=== PATIENT | female | born 1995 | race Caucasian/White ===

== ENCOUNTER → 2017-08-23 12:51 | Outpatient (CLI) | payer OTHER, SELFPAY ==
--- NOTE | 2017-08-23 13:30 | US_ITS ---
US breast RT complete ORDERING PHYSICIAN : Antoinette Aaron PATIENT AGE: 21 years GENDER: Female COMPARISON: Previous ultrasound from November 15, 2016 INDICATION: Palpable area at 12:00 right breast persist. RIGHT BREAST ULTRASOUND INCLUDING AXILLA SURVEY: --- The clinically palpable area at 12:00 reportedly persist.. No ultrasound findings to fully account for this area The previously noted small cyst here at 12:00 noted previously is now slight smaller in size measuring only 4.1 mm.. (Previously this measured up to 5.5 mm). Thus as questioned previously, the palpable area appears larger this tiny cyst which does not seem to fully account for the palpable area. However ultrasound reveals only fibrous tissue here at 12:00 with no suspicious mass or nodule otherwise seen.. (We prefer not to to perform mammography in younger developing breast as in this age patient. Younger developing breast are more sensitive to radiation effects & Mammography often quite limited younger breast of increased density in of limited utility;. Also given the probability of malignancy is exceedingly low in this age patient, I believe follow-up ultrasound from our standpoint would be adequate. However would note that that any clinically progressing, suspicious area should addressed on clinical grounds regardless of imaging studies results.) At 10:00 we encounter a small 5 mm mm cyst. It too is slightly smaller previously measuring 6.8 mm .. Scattered small benign lymph nodes at left axilla not of concern. ======= LEFT BREAST ULTRASOUND including axillary survey:---- Ultrasound entire breast with including left axillary survey 2:00. A small 6.5 mm x 3 mm hypoechoic area. Favor Small debris filled cyst given slight through transmission vs possible small developing benign fibroadenoma.. Well-defined margins benign appearance. Follow-up adequate 3:00. Tiny bilobed debris-filled cyst measuring up to 5 mm x 2.5 mm.. Not of concern. Axillary survey with no significant findings. A few benign nodes ------IMPRESSION: 1. Small benign areas in both breast reflecting cyst & favor debris-filled cyst. 2. Right Breast. ..Small benign-appearing cyst at 12:00 measuring 4.1 mm on today's study has shown slight decrease in size since previous October 2016 ultrasound study. Doubt that this tiny cyst accounts for the palpable fullness in this area. But no areas of concern seen otherwise in the palpable area with today's ultrasound. Ultrasound Follow-up in 6-9 months may be helpful and suggested confirm established stability 3. Left breast. No areas of concern. Small most likely debris filled cyst at 3:00 and 2 o'clock position. Favor debris-filled cyst at 2:00 although may benefit from follow-up to exclude early fibroadenoma Ultrasound Follow-up in 6-9 months suggested to confirm established stability. BI-RADS Category: 3 Benign Finding Short Term Follow-up RECOMMENDED FOLLOW-UP: 6M - 9 MONTH FOLLOW-UP ultrasound both breast may be helpful & suggested to confirm stability of these most likely benign observations bilaterally (A letter has been sent to the patient regarding results of the study.)
--- NOTE | 2017-08-23 13:30 | US_ITS ---
US breast LT complete Ordering Physician: Antoinette Walker Patient Age: 21 years: Female HISTORY: == Palpable area right breast: LEFT BREAST ULTRASOUND including axillary survey:---- Ultrasound entire breast with including left axillary survey 2:00. A small 6.5 mm x 3 mm hypoechoic area. Favor Small debris filled cyst given slight through transmission vs possible small developing benign fibroadenoma.. Well-defined margins benign appearance. Follow-up adequate 3:00. Tiny bilobed debris-filled cyst measuring up to 5 mm x 2.5 mm.. Not of concern. Axillary survey with no significant findings. A few benign nodes *Report dictated on a voice-recognition system is significant commercial fisher error identified please feel free to contact for correction... ------IMPRESSION: 1. Small benign areas in both breast reflecting cyst favor debris-filled cyst. 2. Right Breast. ..Small benign-appearing cyst at 12:00 measuring 4.1 mm on today's study has shown slight decrease in size since previous October 2016 ultrasound study. Doubt that this tiny cyst accounts for the palpable fullness in this area. But no areas of concern seen otherwise in the palpable area with today's ultrasound. Ultrasound Follow-up in 6-9 months may be helpful and suggested confirm established stability 3. Left breast. No areas of concern. Small most likely debris filled cyst at 3:00 and 2 o'clock position. Favor debris-filled cyst at 2:00 although may benefit from follow-up to exclude early fibroadenoma Ultrasound Follow-up in 6-9 months suggested to confirm established stability. BI-RADS Category: 3 Benign Finding Short Term Follow-up RECOMMENDED FOLLOW-UP: 6M - 9 MONTH FOLLOW-UP ultrasound both breast may be helpful suggested to confirm stability of these most likely benign observations bilaterally (A letter has been sent to the patient regarding results of the study.) Ultrasound Follow-up in 6-9 months suggested to confirm established stability
== END ==
PROVIDERS: Family Provider Physician Assistant; PCP Nurse Practitioner Family; Visit Provider Nurse Practitioner Family
DX: N63.10 Unspecified lump in the right breast, unspecified quadrant (principal); R93.8 Abnormal findings on diagnostic imaging of other specified body structures
CPT/HCPCS: 76641

== ENCOUNTER → 2017-09-09 12:27 | Outpatient (CLI) | payer OTHER, SELFPAY ==
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
== END ==
PROVIDERS: PCP Physician Assistant; Visit Provider Physician Assistant
DX: M25.561 Pain in right knee (principal)
CPT/HCPCS: 73564

== ENCOUNTER → 2018-04-29 10:04 | Outpatient (CLI) | payer OTHER, SELFPAY ==
[2018-04-29 10:44] LABS: Basophils % 0.6 % (0.1-2.0); Eosinophils # 0.3 K/mm3 (0.0-0.4); Eosinophils % 4.1 % (0.1-12.0); Hematocrit 43.8 % (37.0-47.0); Hemoglobin 14.1 g/dL (12.2-16.2); Lymphocytes # 2.5 K/mm3 (0.7-4.5); Lymphocytes % 39.6 K/mm3 (10-50); Mean Corpuscular HGB Conc 32.2 g/dL (31.8-35.4); Mean Corpuscular Hemoglobin 28.4 pg (27.0-31.2); Mean Corpuscular Volume 88.2 fl (81-99); Mean Platelet Volume 7.5 fl (7.4-10.4); Monocytes # 0.2 K/mm3 (0.1-1.0); Monocytes % 3.9 % (1.7-9.3); Neutrophils # 3.2 K/mm3 (1.8-7.8); Neutrophils % 51.8 % (37.0-80.0); Platelet Count 295 K/mm3 (142-424); Red Blood Count 4.97 M/mm3 (4.20-5.40); Red Cell Distribution Width 13.8 % (11.5-17.5); White Blood Count 6.2 K/mm3 (4.8-10.8)
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
[2018-04-29 11:08] LABS: Hemoglobin A1C 5.1 % (0.0-7.0)
[2018-04-29 11:10] LABS: Alanine Aminotransferase 25 U/L (12-78); Albumin Level 3.2 gm/dL (3.4-5.0); Albumin/Globulin Ratio 0.8 (1.1-1.8); Alkaline Phosphatase 99 U/L (46-116); Anion Gap 14.4 mEq/L (5-15); Aspartate Amino Transferase 13 U/L (15-37); Bilirubin,Total 0.3 mg/dL (0.2-1.0); Blood Urea Nitrogen 7 mg/dL (7-18); Calcium 9.1 mg/dL (8.5-10.1); Carbon Dioxide 24 mmol/L (21.0-32.0); Chloride 106 mmol/L (98-107); Estimated Glomerular Filt Rate 103 ml/min (>60); GFR (African American) 124 ML/MIN (>60); Globulin 3.8 gm/dl (1.3-3.2); Glucose 91 mg/dL (74-106); Potassium 4.4 mmoL/L (3.5-5.1); Sodium 140 mmol/L (136-145); Thyroid Stimulating Hormone 1.57 uIU/ml (0.358-3.740)
[2018-04-29 11:12] LABS: Glucose,Fasting 91 mg/dL (60-105)
[2018-04-29 12:10] LABS: Glucose 1 Hour 86 mg/dL (74-106)
[2018-05-01 03:33] LABS: Vitamin B12 429 pg/mL (232-1245)
[2018-05-02 06:11] LABS: Insulin Level Total 17.6 uIU/mL (2.6-24.9); Vitamin D 25 Hydroxy 38.2 ng/mL (30.0-100.0)
== END ==
PROVIDERS: PCP Nurse Practitioner Family; Visit Provider Nurse Practitioner Family
DX: R11.0 Nausea (principal); N95.1 Menopausal and female climacteric states; E16.2 Hypoglycemia, unspecified; E55.9 Vitamin D deficiency, unspecified; I25.2 Old myocardial infarction
CPT/HCPCS: 36415; 71046; 80053; 82607; 82652; 82951; 83036; 83525; 84443; 85025

== ENCOUNTER → 2018-05-09 14:39 | Outpatient (CLI) | payer OTHER, SELFPAY ==
[2018-05-09 14:42] LABS: Adenovirus,PCR Not Detected (NotDetected); Bordetella Pertussis Not Detected (NotDetected); Chlamydophila Pneumoniae, PCR Not Detected (NotDetected); Coronavirus 229E Not Detected (NotDetected); Coronavirus NL63 Not Detected (NotDetected); Coronavirus OC43 Not Detected (NotDetected); Coronovirus HKU1,PCR Not Detected (NotDetected); Human Metapneumovirus Not Detected (NotDetected); Influenza A, PCR Not Detected (NotDetected); Influenza AH1, 2009 Not Detected (NotDetected); Influenza AH1, PCR Not Detected (NotDetected); Influenza AH3,PCR Not Detected (NotDetected); Influenza B, PCR Not Detected (NotDetected); Mycoplasma Pneumoniae, PCR Not Detected (NotDected); Parainfluenza 1, PCR Not Detected (NotDetected); Parainfluenza 2, PCR Not Detected (NotDetected); Parainfluenza 3, PCR Not Detected (NotDetected); Parainfluenza 4, PCR Not Detected (NotDetected); Respiratory Syncytial Virus Not Detected (NotDetected); Rhinovirus/Enterovirus Not Detected (NotDetected)
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
[2018-05-09 15:04] LABS: Monoscreen (Rapid) Negative (Negative)
== END ==
PROVIDERS: PCP Nurse Practitioner Family; Visit Provider Nurse Practitioner Family
DX: R50.9 Fever, unspecified (principal); J02.9 Acute pharyngitis, unspecified; M43.6 Torticollis
CPT/HCPCS: 36415; 72050; 86318; 87486; 87581; 87633; 87798

== ENCOUNTER → 2018-07-20 12:46 | Outpatient (CLI) | payer OTHER, SELFPAY ==
--- NOTE | 2018-07-20 13:06 | US_ITS ---
US breast LT complete INDICATION: 1 year follow-up, palpable abnormality at 12 and 1:00 with breast tenderness ORDERING PHYSICIAN: Antoinette Walker PATIENT AGE: 22 years COMPARISON: 08/23/2017 TECHNIQUE: Complete breast ultrasound performed with axilla FINDINGS: 4 mm cyst at 1:00, 3 mm cyst at 2:00, oval hypoechoic area deep in the left breast at 2:00 at 4 mm slightly smaller compared to the previous study previously measuring 5 x 3 mm. 3 mm cyst at 3:00 5 mm complex cyst at 3:00 unchanged. No suspicious nodules evident. Small nodes are present in the axilla IMPRESSION: Multiple left breast cysts unchanged BI-RADS Category: 2 Benign Finding(s) Recommend follow-up as clinically warranted. NEGATIVE ULTRASOUND DOES NOT EXCLUDE THE POSSIBILITY OF MALIGNANCY. ANY PALPABLE NODULE SHOULD BE MANAGED ON A CLINICAL BASIS (A letter has been sent to the patient regarding results of the study.)
--- NOTE | 2018-07-20 13:06 | US_ITS ---
US breast RT complete INDICATION: Palpable abnormality at 6 and 12:00 with breast tenderness ORDERING PHYSICIAN: Antoinette Walker PATIENT AGE: 22 years COMPARISON: 08/23/2017 TECHNIQUE: Right breast ultrasound complete with excellent FINDINGS: 4 x 2 mm complex cyst at 1:00. Unchanged, 3 mm cyst outer aspect of the right breast at 10:00, 4 mm cyst outer aspect right breast 11:00, 4 mm cyst in the retroareolar region. No suspicious nodules evident. IMPRESSION: Small right breast cysts. No nodules demonstrated at the palpable areas of concern. BI-RADS Category: 2 Benign Finding(s) Recommend follow-up as clinically warranted. A NEGATIVE ULTRASOUND DOES NOT EXCLUDE THE POSSIBILITY OF MALIGNANCY. ANY PALPABLE MASS SHOULD BE MANAGED ON A CLINICAL BASIS (A letter has been sent to the patient regarding results of the study.)
== END ==
PROVIDERS: PCP Nurse Practitioner Family; Visit Provider Nurse Practitioner Family
DX: R93.89 Abnormal findings on diagnostic imaging of other specified body structures (principal)
CPT/HCPCS: 76641

== ENCOUNTER → 2018-09-06 19:24 | Outpatient (CLI) | payer OTHER, SELFPAY ==
[2018-09-06 19:48] LABS: Adenovirus,PCR Not Detected (NotDetected); Bordetella Pertussis Not Detected (NotDetected); Chlamydophila Pneumoniae, PCR Not Detected (NotDetected); Coronavirus 229E Not Detected (NotDetected); Coronavirus NL63 Not Detected (NotDetected); Coronavirus OC43 Not Detected (NotDetected); Coronovirus HKU1,PCR Not Detected (NotDetected); Human Metapneumovirus Not Detected (NotDetected); Influenza A, PCR Not Detected (NotDetected); Influenza AH1, 2009 Not Detected (NotDetected); Influenza AH1, PCR Not Detected (NotDetected); Influenza AH3,PCR Not Detected (NotDetected); Influenza B, PCR Not Detected (NotDetected); Mycoplasma Pneumoniae, PCR Not Detected (NotDetected); Parainfluenza 1, PCR Not Detected (NotDetected); Parainfluenza 2, PCR Not Detected (NotDetected); Parainfluenza 3, PCR Not Detected (NotDetected); Parainfluenza 4, PCR Not Detected (NotDetected); Respiratory Syncytial Virus Not Detected (NotDetected); Rhinovirus/Enterovirus Not Detected (NotDetected)
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
[2018-09-06 20:12] LABS: HCG Qualitative, Serum Negative (Negative)
[2018-09-06 20:22] LABS: Alanine Aminotransferase 22 U/L (12-78); Albumin Level 3.3 gm/dL (3.4-5.0); Albumin/Globulin Ratio 0.9 (1.1-1.8); Alkaline Phosphatase 88 U/L (46-116); Anion Gap 15.8 mEq/L (5-15); Aspartate Amino Transferase 11 U/L (15-37); Bilirubin,Total 0.2 mg/dL (0.2-1.0); Blood Urea Nitrogen 9 mg/dL (7-18); Calcium 9.2 mg/dL (8.5-10.1); Carbon Dioxide 25 mmol/L (21.0-32.0); Chloride 104 mmol/L (98-107); Creatinine,Serum 0.79 mg/dL (0.55-1.02); Estimated Glomerular Filt Rate 89 ml/min (>60); GFR (African American) 108 ML/MIN (>60); Globulin 3.7 gm/dl (1.3-3.2); Glucose 86 mg/dL (74-106); HCG,Quantitative 1 mIU/mL; Potassium 3.8 mmoL/L (3.5-5.1); Sodium 141 mmol/L (136-145)
[2018-09-06 20:42] LABS: Basophils # 0.1 K/mm3 (0-0.2); Basophils % 0.7 % (0.1-2.0); Eosinophils # 0.3 K/mm3 (0.0-0.4); Eosinophils % 4.4 % (0.1-12.0); Hematocrit 40.9 % (37.0-47.0); Hemoglobin 13.6 g/dL (12.2-16.2); Lymphocytes # 2.8 K/mm3 (0.7-4.5); Lymphocytes % 37.2 % (10-50); Mean Corpuscular HGB Conc 33.2 g/dL (31.8-35.4); Mean Corpuscular Hemoglobin 28.7 pg (27.0-31.2); Mean Corpuscular Volume 86.4 fl (81-99); Mean Platelet Volume 6.6 fl (7.4-10.4); Monocytes # 0.5 K/mm3 (0.1-1.0); Monocytes % 6.4 % (1.7-9.3); Neutrophils # 3.8 K/mm3 (1.8-7.8); Neutrophils % 51.3 % (37.0-80.0); Platelet Count 272 K/mm3 (142-424); Red Blood Count 4.73 M/mm3 (4.20-5.40); Red Cell Distribution Width 14.3 % (11.5-17.5); White Blood Count 7.4 K/mm3 (4.8-10.8)
[2018-09-08 17:39] LABS: EBV Ab VCA, IgM <36.0 U/mL (0.0-35.9); EBV Nuclear Antigen Ab, IgG >600.0 U/mL (0.0-17.9); Epstein-Barr Virus Early Ag Ab <9.0 U/mL (0.0-8.9)
== END ==
PROVIDERS: PCP Nurse Practitioner Family; Visit Provider Nurse Practitioner Family
DX: R10.9 Unspecified abdominal pain (principal); J02.9 Acute pharyngitis, unspecified; R53.81 Other malaise; M79.10 Myalgia, unspecified site
CPT/HCPCS: 36415; 74019; 80053; 84702; 84703; 85025; 86663; 86664; 86665; 87486; 87581; 87633; 87798

== ENCOUNTER → 2018-12-07 09:39 | Outpatient (CLI) | payer OTHER, SELFPAY ==
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
== END ==
PROVIDERS: PCP Nurse Practitioner Family; Visit Provider Nurse Practitioner Family
DX: R10.30 Lower abdominal pain, unspecified (principal)
CPT/HCPCS: 74176

== ENCOUNTER 2020-06-07 21:02 | Emergency (ER) | payer OTHER, SELFPAY ==
[2020-06-07 21:12] VITALS: BMI 37.8
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
[2020-06-07 21:20] LABS: Microscopic, Urine URINE MICROSCOPIC (MICROSCOPIC)
[2020-06-07 21:21] VITALS: BP 175/96; PULSE 92; RESP 18; TEMP 36.8; O2SAT 98; BMI 37.8
[2020-06-07 21:27] LABS: Appearance,Urine SL CLOUDY (Clear); Bilirubin,Urine Negative (Negative); Blood, Urine Negative (Negative); Color,Urine YELLOW (Yellow); Glucose,Urine (UA) Negative (Negative); Ketones,Urine TRACE (Negative); Leukocyte Esterase,Urine Negative (Negative); Nitrate,Urine Negative (Negative); Protein,Urine Negative (Negative); Specific Gravity, Urine >= 1.030 (1.005-1.030)
[2020-06-07 21:32] LABS: Urine Pregnancy, HCG Qual. Negative (Negative)
[2020-06-07 21:33] LABS: Mucus,Urine 2+ /lpf
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
[2020-06-07 21:38] LABS: Basophils # 0.1 K/mm3 (0-0.2); Basophils % 1.2 % (0.1-2.0); Eosinophils # 0.3 K/mm3 (0.0-0.4); Eosinophils % 2.8 % (0.1-12.0); Hematocrit 45.9 % (37.0-47.0); Hemoglobin 15.2 g/dL (12.2-16.2); Lymphocytes # 4.5 K/mm3 (0.7-4.5); Lymphocytes % 45.6 % (10-50); Mean Corpuscular HGB Conc 33.1 g/dL (31.8-35.4); Mean Corpuscular Hemoglobin 28.7 pg (27.0-31.2); Mean Corpuscular Volume 86.5 fl (81-99); Mean Platelet Volume 7.6 fl (7.4-10.4); Monocytes # 0.7 K/mm3 (0.1-1.0); Monocytes % 6.7 % (1.7-9.3); Neutrophils # 4.3 K/mm3 (1.8-7.8); Neutrophils % 43.7 % (37.0-80.0); Platelet Count 359 K/mm3 (142-424); Red Blood Count 5.31 M/mm3 (4.20-5.40); Red Cell Distribution Width 14.7 % (11.5-17.5); White Blood Count 9.8 K/mm3 (4.8-10.8)
[2020-06-07 21:43] LABS: Alanine Aminotransferase 21 U/L (12-78); Albumin Level 4.6 g/dl (3.5-5.0); Albumin/Globulin Ratio 1.5 (1.1-1.8); Alkaline Phosphatase 118 U/L (38-126); Anion Gap 12.7 mEq/L (5-15); Aspartate Amino Transferase 36 U/L (14-36); Bilirubin,Total 0.4 mg/dl (0.2-1.3); Blood Urea Nitrogen 9 mg/dl (7-17); Calcium 9.5 mg/dl (8.4-10.2); Carbon Dioxide 25 mmol/L (22.0-30.0); Chloride 106 mmol/L (98-107); Creatinine Clearance Estimated 174 mL/min (50-200); Estimated Glomerular Filt Rate 101 ml/min (>60); GFR (African American) 122 ML/MIN (>60); Globulin 3.1 g/dL (1.3-3.2); Glucose 97 mg/dl (74-100); Potassium 3.7 mmoL/L (3.5-5.1); Sodium 140 mmol/L (136-145); Total Protein,Serum 7.7 g/dl (6.3-8.2)
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
[2020-06-07 22:10] VITALS: BP 124/86; PULSE 94; RESP 18; O2SAT 96
--- NOTE | 2020-06-07 23:05 | PC.NURSE ---
RECEIVED REPORTS FROM [facility]. [facility]OPE[facility] READING AT THIS TIME.
[2020-06-07 23:29] VITALS: BP 132/83; PULSE 86; RESP 18; O2SAT 95
[2020-06-07 23:35] VITALS: BP 121/58; PULSE 78; RESP 18; TEMP 36.8; O2SAT 98
== END 2020-06-07 23:38 | disposition home or self-care (01) ==
PROVIDERS: Emergency Provider Emergency Medicine; PCP Nurse Practitioner Family
DX: S16.1XXA Strain of muscle, fascia and tendon at neck level, initial encounter (principal); S29.012A Strain of muscle and tendon of back wall of thorax, initial encounter; S39.012A Strain of muscle, fascia and tendon of lower back, initial encounter; V43.62XA Car passenger injured in collision with other type car in traffic accident, initial encounter; Y92.414 Local residential or business street as the place of occurrence of the external cause
CPT/HCPCS: 70450; 71045; 72125; 72128; 72131; 72170; 73030; 80053; 81001; 81025; 85025; 99282

== ENCOUNTER 2020-07-15 08:00 | Outpatient (RCR) | payer OTHER, SELFPAY | END 2020-07-15 10:00 | disposition home or self-care (01) | LOC: PT.CARL 08:00 | PROVIDERS: PCP Nurse Practitioner Family; Visit Provider Nurse Practitioner Family | DX: M54.2 Cervicalgia (principal) | CPT/HCPCS: 97010; 97012; 97014; 97035; 97110; 97140; 97163; G0283 ==

== ENCOUNTER → 2020-10-21 14:19 | Outpatient (CLI) | payer OTHER, SELFPAY ==
--- NOTE | 2020-10-21 14:28 | MM_ITS ---
PROCEDURE: MM DIG MAMM BI DX W/CAD Digital Breast Tomosynthesis Included CLINICAL INDICATION: MASTODYNIA COMPARISON: US US BREAST RT COMPLETE from 10/21/2020 US US BREAST LT COMPLETE from 10/21/2020 TECHNIQUE: Standard CC and MLO images and 3D Tomosynthesis was obtained. R2 CAD reviewed. Spot-compression views are performed on the right. FINDINGS: There is average fibroglandular tissue. There is a spiculated density with some architectural distortion involving the upper inner aspect of the right breast. This appears to have a central lucency and may be due to a radial scar. Neoplasm is also considered. The central aspect of the lesion measures approximately 1.8 cm on the CC view with radiating bands emanating out from the central aspect of the lesion. Stereotactic directed biopsy is suggested for further evaluation. This area was not visible on the subsequent ultrasound. In the inferior aspect of the left breast there is a 4 mm benign-appearing nodule which is well-circumscribed. This is at the 8 o'clock region Right breast ultrasound: 4 mm complicated cyst at 12 o'clock. The spiculated lesion is not readily identified on ultrasound. Left breast ultrasound: There is a 5 mm hypoechoic nodule at 12 o'clock near the nipple with enhanced through transmission of sound. There is some low level echoes within this area. This may be due to a complicated cyst. IMPRESSION: Spiculated lesion of the right breast possibly due to a radial scar versus neoplasm. Recommend stereotactic directed biopsy. BI-RAD Category: 4 Suspicious Abnormality - Biopsy Considered FOLLOW-UP: BIO Biopsy Recommended (A letter has been sent to the patient regarding results of the study.) Dictated by: Mohan Posey MD 10/24/2020 13:17 Mohan Posey MD in [facility] 10/24/2020 13:17
== END ==
PROVIDERS: PCP Nurse Practitioner Family; Visit Provider Nurse Practitioner Family
DX: N64.4 Mastodynia (principal)
CPT/HCPCS: 76641; 77062; 77066; G0279

== ENCOUNTER → 2020-11-12 10:02 | Outpatient (CLI) | payer OTHER, SELFPAY ==
--- NOTE | 2020-11-12 | MM_ITS ---
PROCEDURE: MM STEREOTACTIC LOC RT Digital Breast Tomosynthesis Included CLINICAL INDICATION: NEOPLASM OF UNCERTAIN BEHAVOR OF RT BREAST Abnormal mammogram COMPARISON: MG MM DIG MAMM BI DX W/CAD from 10/21/2020 MG MM CLIP PLACEMENT RT from 11/12/2020 TECHNIQUE: Following obtaining informed consent and time-out procedure the patient was placed in the stereotactic unit and the area of asymmetric density at 2 o'clock in the right breast was localized using standard technique. Under aseptic conditions and local anesthesia with 1 percent buffered lidocaine mammotome needle was inserted and multiple mammotome biopsies were obtained. A clip was placed bud dislodged during removal of the needle. The patient tolerated the procedure well without evidence of immediate complications. FINDINGS: Pathology: Focal radial scar. Focal pseudo angiomatous stromal hyperplasia/Pash and fibrocystic changes with microcalcification. Negative for atypia or malignancy. Post biopsy mammogram: Post biopsy changes are present at the 2 o'clock region of the right breast in the expected area of deformity where the mammographic abnormality was noted. Although the clip was deployed, it did not adhere and was removed during removal of the needle. IMPRESSION: Uneventful stereotactic directed biopsy of the right breast showing radial scar and PASH. No evidence of atypia or malignancy. Would consider surgical consult to give patient options on how to follow this pathological finding. A six-month mammographic follow-up could be performed to confirm short term stability. Dictated by: Mohan Posey MD 11/22/2020 16:11 Mohan Posey MD in [place] 11/22/2020 16:11
== END ==
PROVIDERS: PCP Nurse Practitioner Family; Visit Provider Nurse Practitioner Family
DX: D48.61 Neoplasm of uncertain behavior of right breast (principal)
CPT/HCPCS: 19081; 77065

== ENCOUNTER → 2021-08-26 12:47 | Outpatient (CLI) | payer OTHER, SELFPAY ==
--- NOTE | 2021-08-26 12:58 | MM_ITS ---
PROCEDURE INFORMATION: Exam: MG Right Diagnostic Breast Tomosynthesis Exam date and time: 08/26/2021 12:58 PM Age: 25 years old Clinical indication: Patient HX: 6 month follow up from stereotactic biopsy showing radial scar TECHNIQUE: Imaging protocol: Right Diagnostic tomosynthesis and 2D mammography including computer-aided detection (CAD) when performed. Unilateral or bilateral exam. COMPARISON: 1. MG MM CLIP PLACEMENT RT 11/12/2020 11:42 AM 2. MG MM DIG MAMM BI DX W/CAD 10/21/2020 2:39 PM FINDINGS: MAMMOGRAPHY: The breast tissue is composed of scattered areas of fibroglandular density. There is no stellate mass or suspicious microcalcifications in either breast to suggest malignancy. Persistent architectural distortion in the posterior third of the right upper inner quadrant at the site of prior stereotactic biopsy showing radial scar. No clip is noted. No skin thickening or axillary adenopathy. IMPRESSION: Persistent architectural distortion in the right upper inner quadrant. Surgical consultation is recommended given the presence of a radial scar. ASSESSMENT: BI-RADS Category 4: Suspicious
== END ==
PROVIDERS: PCP Nurse Practitioner Family; Visit Provider Nurse Practitioner Family
DX: R92.2 Inconclusive mammogram (principal)
CPT/HCPCS: 77061; 77065; G0279

== ENCOUNTER → 2021-09-12 08:35 | Outpatient (CLI) | payer OTHER, SELFPAY | PROVIDERS: PCP Nurse Practitioner Family; Visit Provider Surgery | DX: N63.0 Unspecified lump in unspecified breast (principal) ==

== ENCOUNTER → 2021-09-14 09:08 | Outpatient (CLI) | payer OTHER, SELFPAY ==
[2021-09-14 09:35] LABS: Urine Pregnancy, HCG Qual. Negative (Negative)
[2021-09-14 10:09] LABS: Basophils % 0.5 % (0.1-2.0); Eosinophils # 0.2 K/mm3 (0.0-0.4); Hematocrit 42.6 % (37.0-47.0); Hemoglobin 13.5 g/dL (12.2-16.2); Lymphocytes # 2.3 K/mm3 (0.7-4.5); Lymphocytes % 30.9 % (10-50); Mean Corpuscular HGB Conc 31.6 g/dL (31.8-35.4); Mean Corpuscular Hemoglobin 28.9 pg (27.0-31.2); Mean Corpuscular Volume 91.5 fl (81-99); Monocytes # 0.5 K/mm3 (0.1-1.0); Monocytes % 6.6 % (1.7-9.3); Neutrophils # 4.3 K/mm3 (1.8-7.8); Platelet Count 345 K/mm3 (142-424); Red Blood Count 4.66 M/mm3 (4.20-5.40); Red Cell Distribution Width 14.5 % (11.5-17.5); White Blood Count 7.3 K/mm3 (4.8-10.8)
[2021-09-14 10:15] LABS: Chloride 105 mmol/L (98-107); Potassium 4.4 mmoL/L (3.5-5.1); Sodium 132 mmol/L (136-145)
[2021-09-14 10:18] LABS: Blood Urea Nitrogen 10 mg/dl (7-17); Estimated Glomerular Filt Rate 120 ml/min (>60); GFR (African American) 145 ML/MIN (>60)
[2021-09-14 10:19] LABS: Anion Gap 7.4 mEq/L (5-15); Calcium 8.6 mg/dl (8.4-10.2); Carbon Dioxide 24 mmol/L (22.0-30.0); Glucose 85 mg/dl (74-100)
== END ==
PROVIDERS: PCP Nurse Practitioner Family; Visit Provider Surgery
DX: Z01.812 Encounter for preprocedural laboratory examination (principal); Z11.52 Encounter for screening for COVID-19; N63.12 Unspecified lump in the right breast, upper inner quadrant
CPT/HCPCS: 36415; 80048; 81025; 85025; C9803; U0003; U0005

== ENCOUNTER 2021-09-15 11:30 | Day surgery (SDC) | payer OTHER, SELFPAY ==
[2021-09-11 13:21] VITALS: BMI 39.3
[2021-09-15] VITALS (12 sets, daily range): BP systolic 124–147; BP diastolic 74–99; PULSE 81–111; RESP 16–22; TEMP 36.1–43; O2SAT 93–98
--- NOTE | 2021-09-15 12:05 | MM_ITS ---
FINAL REPORT CLINICAL HISTORY: .RT BREAST SPECIMEN FINDINGS: Right breast needle localization procedure. History: Architectural distortion. Abnormal mammogram. Standard written informed consent was obtained. Technique: The right breast was prepped in routine sterile fashion and locally anesthetized with 1% lidocaine. A Kopan's needle was directed from a superior to inferior approach using mammographic grid localization. Imaging was then performed from a lateral projection to optimize needle depth and hook wire deployment. The needle was mildly retracted with hookwire deployed less than 1 cm beyond the area of architectural distortion. The bulbous portion of the localization wire was noted to be centered within the area of architectural distortion. 3D imaging after hookwire localization was performed which showed satisfactory positioning of the localization wire within the region of distortion. A specimen radiograph shows the hookwire to be contained within the specimen but no clear mass or obvious architectural distortion. IMPRESSION: Technically successful hookwire localization of area of architectural distortion within the right breast Authenticated by Fay Maddox MD on 09/17/2021 02:49:41 PM [facility]
--- NOTE | 2021-09-15 14:30 | P.PN_ITS ---
[facility] Anesthesia Checklist - Patient Identification Patient Identification: Arm Band - Structural Data Admitted From: Home Planned Operative Procedure/s: Right Needle Loc Breast Biopsy Consent for Planned Operative Procedure(s) Verified: Yes Verified Documents: Surgical Consent, History and Physical - NPO Status Verified Time NPO: 00:00 - Additional verifications Anesthesia Reactions: No Hx Blood Transfusions: No Blood Transfusion Reaction: No - Airway Assessment C-Spine Mobility Assessed: Yes (mp2) TMJ Mobility Assessed: Yes Dentition: Good Dentition - Neurological Assessment Level of Consciousness: Awake, Alert - Anesthesia Plan Anesthesia Risk discussed: Yes Anesthesia Plan: Verified ASA Class: III Anesthesia Type: General [facility] History I have reviewed the patient's past medical history: Yes Medical History: Denies:: Cancer, Diabetes Mellitus Type 1, Diabetes Mellitus Type 2, Internal Pacemaker, MRSA, Seizures *Have you ever received a pneumonia vaccine?: No *Have you received a flu vaccine this season?: No Other Medical History: Denies: Blood Transfusion Reaction Anesthesia experience/problems:: nac Laterality Cases: Bilateral: Tonsillectomy Other Surgeries: No: Pacemaker Amputation: No Fractures: No - *Social History Last grade of school completed: High school graduate Smoking Status: Current every day smoker Tobacco Type: cigarettes # Packs/Day (cigarettes): 1 Alcohol Intake: current Alcohol Intake Frequency:: a few times a month Substance Use Type: denies use *Occupational Status:: employed Housing: house Household Members: spouse *Travel in the last 8 weeks: None Family Hx:: No significant family history
--- NOTE | 2021-09-15 15:13 | MM_ITS ---
FINAL REPORT CLINICAL HISTORY: rt breast surgery specimen FINDINGS: Surgical specimen History: Excisional biopsy after hookwire localization procedure Findings: Localization hookwire is noted within the tissue specimen. There is no clear mass within the lesion. There is questionable area of distortion along the periphery of the specimen along the proximal portion of the thick portion of the localization wire. However it is not conclusive whether the area of distortion is contained within the specimen. Follow-up mammography is recommended within 3-6 months if histopathologies benign. IMPRESSION: Specimen radiograph as described above Authenticated by Fay Maddox MD on 09/17/2021 05:19:42 PM [facility]
--- NOTE | 2021-09-15 15:21 | SUR.OPER ---
1520- family updated of patients current status via dayne robertson in preop
--- NOTE | 2021-09-15 16:00 | P.OP_ITS ---
Date of procedure: 09/15/21 Pre-op Diagnosis:: Right breast lesion (radial scar/pseudoangiomatous stromal hyperplasia) Post-op Diagnosis:: Same Procedure performed:: Needle-localized excisional biopsy of right breast lesion Surgeon:: Veto Sandoval MD Business Administration Instructor(s):: [employer] MANAGEMENT INFORMATION SYSTEMS DIRECTOR:: Tacho May Anesthesia: LMA Estimated blood loss (mL): 25 Operative findings:: Tissue surrounding entire area of localization needle excised Palpable firm nodularity along medial margin excised Localization needle displaced due to angulation/tension Radiographic confirmation of complete excision unable to be obtained secondary to displaced localization needle Extended inferior and deep margins obtained secondary to inability to obtain radiographic confirmation Operative note:: After informed consent was obtained the patient was taken to the radiology suite where a localization needle was placed. Please see separate report for detail. She was then transferred to the operating room and placed in the supine position. General anesthesia with laryngeal mask airway was achieved. Her right breast was prepped and draped in a sterile fashion. After infiltration local anesthetic an incision was made at the exit site of the localization needle. The deep subcutaneous tissue was dissected with combination of sharp dissection and electrocautery. A firm area of nodularity along the lateral margin was carefully elevated. The tissue surrounding the entire localization needle, as well as, the area of firm nodularity were carefully elevated as excision was completed circumferentially. A combination of sharp dissection with curved Skaggs scissors and electrocautery was utilized to resect the specimen . Secondary to retraction/angulation the localization needle was partially displaced. Confirmation of complete excision radiographically was unable to be obtained secondary to this partial displacement. An extended inferior and deep margin were obtained for pathologic evaluation. As stated above, the entire region surrounding the localization needle site was excised with at least a 1 cm margin. No additional areas of palpable abnormality were noted. Electrocautery was utilized to achieve hemostasis. A small area of continuous sanguinous ooze was controlled with a single Vicryl suture ligation in a [id number] fashion. This was in the central deep portion of the wound. Metallic clips were placed along the wound base and margin. The entire cavity was carefully irrigated. No additional bleeding was noted. The deep subcutaneous tissue was reapproximated with 2-0 Vicryl and skin was closed with 4-0 Monocryl in a running subcuticular fashion. Condition: stable Disposition: PACU Specimens:: Right breast lesion Extended inferior margin Extended deep margin Complications:: No immediate
--- NOTE | 2021-09-15 16:01 | HMH.ANESI ---
[facility] Anesthesia Record Part I Intake, IV Amount: 1,000 Estimated blood loss (mL): 10 Urine output (mL): 0 Blood Pressure: 124/74 SaO2: 93 Pulse Rate: 110 Respiratory Rate: 16 Temperature: 97.5 F Patient is:: Drowsy, Stable Stable to PACU at:: 16:00
--- NOTE | 2021-09-15 17:14 | SUR.PHASEII ---
Reviewed DC instructions w/ patient and . Made aware to remove dressing in 48 hours and shower, leave steri strips intact. Verbalized understanding.
--- NOTE | 2021-09-16 08:09 | P.PN_ITS ---
[facility] Anesthesia Record Part II Discharge Time: 16:50 Destination: Surgical Day Care (OP Surgery) PACU nurse assessment reviewed?: Yes Patient Condition:: Good Anesthesia Complications:: None Swallowing reflex intact?: Yes Cyanosis?: No Blood Pressure: 140/77 Pulse Rate: 89 Temperature: 98 F Mental Status: Alert & Oriented Pain level:: 0 Nausea and/or vomitting:: None Intake, IV Amount: 0
[2021-09-16 08:10] VITALS: BP 140/77; PULSE 89; TEMP 36.6
== END 2021-09-15 17:13 | disposition home or self-care (01) ==
LOC: OR 11:31
PROVIDERS: PCP Nurse Practitioner Family; Visit Provider Surgery
PROC: (CPT 19100; principal; 2021-09-15 14:00)
DX: N63.12 Unspecified lump in the right breast, upper inner quadrant (principal); N94.89 Other specified conditions associated with female genital organs and menstrual cycle; Z88.1 Allergy status to other antibiotic agents
CPT/HCPCS: 19100; 19281; 76098; J2405

== ENCOUNTER 2021-11-19 09:10 | Emergency (ER) | payer OTHER, SELFPAY ==
[2021-11-19 09:11] VITALS: BP 139/80; PULSE 81; RESP 19; TEMP 37.1; O2SAT 99; BMI 37.5
[2021-11-19 09:54] LABS: Apearance,Urine Clear (Clear); Bilirubin,Urine Negative (Negative); Blood, Urine Negative (Negative); Color,Urine Dark Yellow (Yellow); Glucose,Urine (UA) Negative (Negative); Ketones,Urine Negative (Negative); PH,Urine 7.5 (5.0-8.5); Protein,Urine Negative (Negative); Specific Gravity, Urine 1.015 (1.005-1.030); UTC Leukocyte Esterase,Urine 2+ (Negative); UTC Nitrate,Urine Negative (Negative); Urobilinogen,Urine 0.2 EU/dl (0.2)
--- NOTE | 2021-11-19 10:07 | HMH.EDUTC ---
[facility] [place] Clinical Impression: Sinusitis Qualifiers: Sinusitis location: unspecified location Chronicity: unspecified Qualified Code(s): J32.9 - Chronic sinusitis, unspecified UTI (urinary tract infection) Qualifiers: Urinary tract infection type: site unspecified Hematuria presence: without hematuria Qualified Code(s): N39.0 - Urinary tract infection, site not specified Disposition: Home, Self-Care Condition on Discharge: Good Instructions: Sinusitis, DI for Sinusitis, DI for Urinary Tract Infection (UTI) Additional Instructions: *Increase fluids. Water not Soda or Tea *Start antibiotic immediately and be sure to take as ordered for the FULL length of time although you should start to see improvement over the next 48 hours *Pyridium as needed Remember this medication will turn your urine Gates. This is normal but it will stain what ever it gets on *You should not use Pyridium for more than 48 hours. If so , follow up with your primary physician to review urine culture and ensure that antibiotic is adequate for infection *Be SURE to follow up anytime for new or worsening symptoms with your family doctor. AND in 48 hours for urine culture results with your family doctor, if you do not have a doctor then you may call back to the [facility] for urine culture results and further treatment. We do recommend that you choose and establish care with a Primary Care Physician. AND follow up with them in 10-14 days to repeat UA to ensure infection is resolved and blood no longer present *Be sure to let your PCP know that we sent urine cultures from the [facility] so they can follow up to ensure that you area the on the correct antibiotic Call your doctor office and make appointment for 48 hours (2 days from today) to follow up and get the results of your urine culture and further treatment *Monitor Temp, Over the counter Motrin or Tylenol as directed/as needed Tylenol every 4 hours and Motrin every 6 hours (as long as your family doctor has told you that you can take it) for fever or pain. and straight to ER if unable to lower temp less than 101.0 after medication given *Warm salt water gargles may help to soothe the throat *Throat Lozenges *Warm fluids like tea with honey may help to soothe the throat *Sleep elevated *Humidifier/Vaporizer Follow up IMMEDIATELY for new or worsening symptoms or no Noticeable improvement over the next 48-72 hours. 911 for difficulty breathing or swallowing Prescriptions: methylPREDNISolone [Medrol 4mg tab] 4 mg PO DIRECTED #21 tab Transmission Status: Pending to [facility] Cefdinir [Omnicef 300mg Capsule] 300 mg PO BID #20 cap Transmission Status: Pending to [facility] Phenazopyridine HCl [Pyridium 200mg Tablet] 200 pow PO TID #6 tab Transmission Status: Pending to [facility] Referrals: Catrachita Ortega [Primary Care Provider] - As needed Time of Disposition: 10:18 Medical Decision Making - Jakub Inquiry Pt receiving controlled substance: No Jakub was queried for this patient: No Vital Signs: 11/19/21 09:11 Temperature 98.7 F Temperature Source Oral Pulse Rate [Left Radial] 81 Respiratory Rate 19 Blood Pressure [Right Arm] 139/80 Blood Pressure Mean [Right Arm] 99 Blood Pressure Source [Right Arm] Automatic Cuff Blood Pressure Position [Right Arm] Sitting 02 Sat by Pulse Oximetry 99 Oxygen Delivery Method Room Air - Lab Data Lab results reviewed: Yes: I reviewed the patient's lab results. Lab Results 11/19/21 09:39: Urine Color Dark yellow, Urine Appearance Clear, Urine pH 7.5, Ur Specific [place] 1.015, Urine Protein Negative, Urine Glucose (UA) Negative, Urine Ketones Negative, Urine Blood Negative, Urine Nitrate Negative, Urine Bilirubin Negative, Urine Urobilinogen 0.2, Ur Leukocyte Esterase 2+ A Orders (Tests/Meds): ORDERS Category Date Time Status Urine Culture Stat Micro 11/19/21 09:53 [place] [facility] [place] - General Stated complaint:
[2021-11-19 10:24] VITALS: BP 139/80; PULSE 81; RESP 19; TEMP 37.1; O2SAT 99
== END 2021-11-19 10:26 | disposition home or self-care (01) ==
PROVIDERS: Emergency Provider Nurse Practitioner; PCP Nurse Practitioner Family
DX: J32.9 Chronic sinusitis, unspecified (principal); N39.0 Urinary tract infection, site not specified; Z79.899 Other long term (current) drug therapy; Z72.0 Tobacco use
CPT/HCPCS: 81003; 87086; 99212; G0463

== ENCOUNTER 2022-10-21 08:23 | Emergency (ER) | payer OTHER, SELFPAY ==
[2022-10-21 08:47] VITALS: BP 155/76; PULSE 90; RESP 20; TEMP 37.1; O2SAT 99; BMI 36.6
--- NOTE | 2022-10-21 08:52 | XR_ITS ---
FINAL REPORT CLINICAL HISTORY: fall yesterday, lateral foot pain FINDINGS: LEFT FOOT Three views of the left foot demonstrate no acute fracture or dislocation. The visualized joint spaces are normally aligned. The soft tissues are unremarkable. IMPRESSION: No acute bony abnormality. Reviewed, Interpreted and Dictated by Wilson Pop MD Transcribed by Agueda Álvarez Authenticated and [facility]
--- NOTE | 2022-10-21 08:53 | PC.NURSE ---
RADIOLOGY AWARE OF XRAY.
--- NOTE | 2022-10-21 09:21 | EXP.UTC ---
Discharge Plan Disposition Patient Disposition: Home, Self-Care Condition: Good Prescriptions Prescriptions: No Action clomiphene citrate 50 mg tablet 50 mg PO DAILY Label Comments: TAKE 1 TABLET 1 TIME EACH DAY, STARTING DAY 5 OF MENSTRUAL CYCLE. metformin 500 mg tablet 500 mg PO DAILY phenazopyridine 200 MG tablet 200 pow PO TID Qty: 6 0RF methylprednisolone 4 MG tablet 4 mg PO DIRECTED Qty: 21 0RF Rx Instructions: Take as directed on package instructions cefdinir 300 MG capsule 300 mg PO BID Qty: 20 0RF hydrocodone-acetaminophen 1 TAB tablet 1 - 2 tab PO Q6HP PRN (Reason: post-op pain) Qty: 17 0RF Referrals Follow up/Referrals: Catrachita Ortega [Primary Care Provider] - See instructions Brenda Radford DPM [Staff Physician] - See instructions (call office for appointment) Activity Restrictions/Add. Instructions Additional Instructions/Restrictions: *weight bearing as tolerated *RICE, Rest the extremity, Ice 15-20 minutes 3-4 times daily, Compress- wear the shaji wrap as discussed as much as possible to help reduce swelling and pain, Elevate the extremity when at rest *Shaji wrap is for support and help control swelling, use it except in the shower. Be sure that is not to tight but not to loose either *Elevate when resting? *Ibuprofen 600-800mg every 6-8 hours as needed for pain an inflammation. If need something more can take Tylenol in between doses of Ibuprofen to help Immediately follow up with your family doctor for new or worsening of symptoms, or no noticeable improvement over the next 3-5 days Clinical Impressions Clinical Impression: Foot sprain Qualifiers: Encounter type: initial encounter Laterality: left Qualified Code(s): S93.602A - Unspecified sprain of left foot, initial encounter Instructions Patient Instructions: How To Perform RICE (Rest, Ice, Compress, Elevate), DI for Foot Sprain, How to Use a Walking Boot Discharge ED Provider: [place]on [place] [facility] [place] General Stated complaint: [id number] left foot pain,home accident Mode of Arrival: Ambulatory Source of Information: Patient Limitations: No Limitations Time Seen by Provider: 10/21/22 09:21 Description of Symptoms (Recalled from Triage Doc. by RN): pt states she slipped and fell off the back of a truck yesterday, states she landed on a pallet, denies LOC or hitting her head, she states she tried to catch herself and fell wrong on her foot, reports a throbbing pain to the top of her L foot HEENT Symptoms (Recalled from RN notes): No Resp Symptoms (Recalled from RN notes): No Skin Symptoms (Recalled from RN notes): No MS Symptoms (Recalled from RN notes): No Functional Status (Recalled from RN notes): wnl History of Present Illness Provider Complaint: Patient states that he was raining yesterday and she went to step off back of truck and she slipped and landed on her left foot and it twisted States that since then she has been having pain in the top of her left foot and last night it was swollen States today she isnt having any bruising or anything just still has pain in her foot when she walks on it Related Data Home Medications Medication Instructions Recorded Confirmed clomiphene citrate 50 mg tablet 50 mg PO DAILY . 09/09/21 09/25/21 metformin 500 mg tablet 500 mg PO DAILY pcos 09/09/21 09/25/21 Previous Rx's Medication Instructions Recorded hydrocodone 5 mg-acetaminophen 325 1 - 2 tab PO Q6HP PRN post-op pain 09/15/21 mg tablet #17 tabs cefdinir 300 mg capsule 300 mg PO BID #20 caps 11/19/21 methylprednisolone 4 mg tablet 4 mg PO DIRECTED #21 tabs 11/19/21 phenazopyridine 200 mg tablet 200 pow PO TID #6 tabs 11/19/21 Allergies Allergy/AdvReac Type Severity Reaction Status Date / Time azithromycin [AZITHROMYCIN] Allergy Unknown Verified 09/25/21 09:21 Worker's Comp Is this a Worker's Comp case?: No Is this an [facility] Worker's Comp?: No Is this a [facility] Worker's Comp?: No
[2022-10-21 09:48] VITALS: BP 155/76; PULSE 90; RESP 20; TEMP 37.1; O2SAT 99
== END 2022-10-21 09:50 | disposition home or self-care (01) ==
PROVIDERS: Emergency Provider Nurse Practitioner; PCP Nurse Practitioner Family
DX: S93.602A Unspecified sprain of left foot, initial encounter (principal); W17.89XA Other fall from one level to another, initial encounter
CPT/HCPCS: 29515; 73630; 99212; 99213; G0463

== ENCOUNTER 2024-09-19 12:53 | Outpatient (CLI) | payer OTHER, SELFPAY ==
--- NOTE | 2024-09-19 12:57 | CT_ITS ---
FINAL REPORT TECHNIQUE: Thin section axial images were obtained from skull base to vertex without contrast. Coronal and sagittal reconstruction images were obtained from the axial data. Exam was performed using dose reduction techniques such as automated exposure control, adjustment of the mA and kV according to patient size, and use of iterative reconstruction technique. CLINICAL HISTORY: HEADACHES COMPARISON: None FINDINGS: There is no mass effect or midline shift. There is no hydrocephalus. There is no intracranial hemorrhage. The posterior fossa is without acute abnormality. The basilar cisterns are preserved. The soft tissues are without acute abnormality. No acute osseous abnormality is identified. IMPRESSION: No acute intracranial abnormality. Reviewed, Interpreted and Dictated by Gloria Kaplan MD Transcribed by Massiel Escobedo Authenticated and [facility]
== END 2024-09-19 23:59 | disposition home or self-care (01) ==
LOC: RAD 12:54
PROVIDERS: PCP Nurse Practitioner Family; Visit Provider Nurse Practitioner Family
DX: G44.82 Headache associated with sexual activity (principal)
CPT/HCPCS: 70450